=== PATIENT | female | born 1945 | race Caucasian/White ===

== ENCOUNTER 2017-09-07 09:52 | Outpatient (CLI) | payer OTHER | END 2017-09-07 17:13 | disposition home or self-care (01) | LOC: SMA 09:52 | PROVIDERS: ATTEND Family Medicine | DX: R92.1 Mammographic calcification found on diagnostic imaging of breast (principal) | CPT/HCPCS: 76641; G0204 ==

== ENCOUNTER 2018-08-24 09:36 | Outpatient (CLI) | payer OTHER | END 2018-08-24 20:53 | disposition home or self-care (01) | LOC: SMA 09:36 | PROVIDERS: ATTEND Family Medicine | DX: R92.2 Inconclusive mammogram (principal); R92.8 Other abnormal and inconclusive findings on diagnostic imaging of breast | CPT/HCPCS: 76641; 77066 ==

== ENCOUNTER 2019-03-01 08:48 | Outpatient (CLI) | payer OTHER | END 2019-03-01 21:15 | disposition home or self-care (01) | LOC: SMA 08:48 | PROVIDERS: ATTEND Physician Assistant Medical | DX: N63.10 Unspecified lump in the right breast, unspecified quadrant (principal) | CPT/HCPCS: 76642; 77066 ==

== ENCOUNTER 2020-07-31 10:00 | Outpatient (CLI) | payer OTHER | END 2020-07-31 19:55 | disposition home or self-care (01) | LOC: SMA 10:00 | PROVIDERS: ATTEND Family Medicine | DX: R92.8 Other abnormal and inconclusive findings on diagnostic imaging of breast (principal); N64.89 Other specified disorders of breast | CPT/HCPCS: 77066 ==

== ENCOUNTER 2021-08-01 11:27 | Outpatient (CLI) | payer OTHER | END 2021-08-02 13:28 | disposition home or self-care (01) | LOC: SMA 11:27 | PROVIDERS: ATTEND Family Medicine | DX: N63.41 Unspecified lump in right breast, subareolar (principal); N64.89 Other specified disorders of breast; R92.2 Inconclusive mammogram | CPT/HCPCS: 76641; 77066 ==

== ENCOUNTER 2022-08-17 11:07 | Outpatient (CLI) | payer OTHER | END 2022-08-17 18:20 | disposition home or self-care (01) | LOC: SMA 11:07 | PROVIDERS: ATTEND Family Medicine | DX: Z12.31 Encounter for screening mammogram for malignant neoplasm of breast (principal); N63.10 Unspecified lump in the right breast, unspecified quadrant | CPT/HCPCS: 77067 ==